=== PATIENT | female | born 1955 | race Hispanic/Latino ===

== ENCOUNTER 2016-11-21 04:48 | Emergency (ER) | payer SELFPAY ==
[2016-11-21 06:06] LABS: Hematocrit 34.8 % (30.3-42.9); Hemoglobin 11.5 gm/dl (10.1-14.3); Mean Corpuscular HGB Conc 33 % (30-34); Mean Corpuscular Hemoglobin 31 pg (28-32); Mean Corpuscular Volume 92 fl (79-97); Platelet Count 328 K/mm3 (140-440); Red Blood Count 3.77 M/mm3 (3.65-5.03); Red Cell Distribution Width 16.4 % (13.2-15.2)
--- NOTE | 2016-11-21 06:18 | Emergency Department Report ---
ED Chest Pain HPI - General Chief Complaint: Chest Pain Stated Complaint: CHEST PAIN Time Seen by Provider: 11/21/16 06:14 Source: patient, EMS Mode of arrival: Stretcher Limitations: No Limitations - History of Present Illness Initial Comments: The patient states that she's been having right-sided chest pain for months. She states that she was told not to replace her fentanyl patch on until today. 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 His state she presented to the emergency department had for about 5 AM with substantial pain. She has a history of lung cancer and is status post radiation therapy. She's had a port placed for future chemotherapy. She states that she was admitted to another facility for evaluation of her chest pain recently. She was told that she had an abnormal EKG and states that she had many tests done but not a heart catheterization. She was not diagnosed with a cardiac problem. Her right-sided chest pain is unchanged for several months. MD Complaint: chest pain -: month(s) Onset: during rest, awoke with symptoms Pain Location: right chest Pain Radiation: none Severity scale (0 -10): 10 Quality: aching Consistency: constant Improves With: nothing Worsens With: nothing re: denies: nausea, vomting, diaphoresis, dyspnea, sense of impending doom Other Symptoms: denies: cough, fever, syncope, rash, acid taste in mouth, leg swelling, palpitations, burping Aspirin use within the Past 7 Days: (1) Yes - Related Data On Oral Contraceptives: No Previous Rx's Medication Instructions Recorded Last Taken Type HYDROcodone/APAP 7.5-325 [[place] 1 each PO Q6HR PRN #14 tablet 11/21/16 Unknown Rx 7.5/325] Allergies Allergy/AdvReac Type Severity Reaction Status Date / Time No Known Allergies Allergy Unverified 11/21/16 05:04 Heart Score - HEART Score History: Slightly suspicious EKG: Significant ST-depression Age: 45-65 Risk factors: 1-2 risk factors Troponin: < normal limit HEART Score: 4 - Critical Actions Critical Actions: 0-3 pts:0.9-1.7%risk of adverse cardiac event.Candidate for discharge (chronic chest pain not consistent with ACS) ED Review of Systems ROS: Stated complaint: CHEST PAIN Other details as noted in HPI Constitutional: denies: chills, fever Eyes: denies: eye pain, eye discharge, vision change ENT: denies: ear pain, throat pain Respiratory: denies: cough, shortness of breath, wheezing Cardiovascular: chest pain. denies: palpitations Endocrine: no symptoms reported Gastrointestinal: denies: abdominal pain, nausea, diarrhea Genitourinary: denies: urgency, dysuria, discharge Musculoskeletal: denies: back pain, joint swelling, arthralgia Skin: denies: rash, lesions Neurological: denies: headache, weakness, paresthesias Psychiatric: denies: anxiety, depression Hematological/Lymphatic: denies: easy bleeding, easy bruising ED Past Medical Hx - Past Medical History Previous Medical History?: Yes Additional medical history: lung and spine cancer - Surgical History Past Surgical History?: Yes Additional Surgical History: total hysterectomy tonsils left leg surgery - Social History Smoking Status: Current Every Day Smoker Substance Use Type: Prescribed - Medications Home Medications: Home Medications Medication Instructions Recorded Confirmed Last Taken Type HYDROcodone/APAP 7.5-325 [[place] 1 each PO Q6HR PRN #14 tablet 11/21/16 Unknown Rx 7.5/325] ED Physical Exam - General Limitations: No Limitations General appearance: alert, in no apparent distress - Head Head exam: Present: atraumatic, normocephalic - Eye Eye exam: Present: normal appearance. Absent: scleral icterus - ENT ENT exam: Present: normal exam, mucous membranes moist - Neck Neck exam: Present: normal inspection - Respiratory Respiratory exam: Present: normal lung sounds bilaterally. Absent: respiratory distress - Cardiovascular Cardiovascular Exam: Present: regular rate, normal rhythm. Absent: systolic murmur, diastolic murmur, rubs, gallop - GI/Abdominal GI/Abdominal exam: Present: soft, normal bowel sounds. Absent: distended, tenderness, guarding, rebound, rigid - Extremities Exam Extremities exam: Present: normal inspection, normal capillary refill. Absent: tenderness, pedal edema, joint swelling, calf tenderness - Back Exam Back exam: Present: normal inspection - Neurological Exam Neurological exam: Present: alert, oriented X3, CN II-XII intact. Absent: motor sensory deficit - Psychiatric Psychiatric exam: Present: normal affect, normal mood - Skin Skin exam: Present: warm, dry, intact, normal color. Absent: rash ED Course Vital Signs 11/21/16 11/21/16 11/21/16 04:48 04:50 05:00 Temperature Pulse Rate 102 H 93 H 92 H Respiratory 26 H 26 H 23 Rate Blood Pressure 151/75 150/82 Blood Pressure [Left] O2 Sat by Pulse 100 100 100 Oximetry 11/21/16 11/21/16 11/21/16 05:05 05:25 05:26 Temperature 97.7 F Pulse Rate 89 89 Respiratory 20 20 Rate Blood Pressure 151/75 Blood Pressure 151/75 [Left] O2 Sat by Pulse 100 100 Oximetry 11/21/16 11/21/16 11/21/16 06:26 06:36 07:00 Temperature Pulse Rate 89 92 H Respiratory 19 Rate Blood Pressure 151/75 115/61 Blood Pressure [Left] O2 Sat by Pulse 100 Oximetry 11/21/16 11/21/16 08:00 08:06 Temperature Pulse Rate 87 Respiratory 16 16 Rate Blood Pressure 116/74 Blood Pressure [Left] O2 Sat by Pulse 97 Oximetry - Reevaluation(s) Reevaluation #1: Patient is a bit more cooperative with history after pain management. She did not admit that she actually was at [facility] on November 05. She did have some paperwork with her which reveals a recent diagnosis of pulmonary embolism. The patient states that she has been compliant with her Lovenox twice a day and does bring Lovenox with her. I will attempt to obtain her discharge summary and previous EKG from [facility]. She states she thinks her oncologist's name is Keith but doesn't know their first name but does have an appointment coming up. 11/21/16 07:29 Reevaluation #2: The patient's chronic right-sided chest pain has resolved. Her pulse oximetry is 99%. 2 troponins are negative. He states he's had a cardiac workup and previously abnormal EKG. I cannot obtain records from [facility]. However, at this time I do not think the patient has criteria for acute hospitalization. She is to continue her Lovenox and see her oncologist as planned. Additionally I looked at the area of her fentanyl patch. There is no evidence of allergic reaction. I instructed the patient to utilize her fentanyl for chronic pain management. 11/21/16 09:59 11/21/16 10:00 NAZARIO score - Nazario Score Age > 65: (0) No Aspirin use within the Past 7 Days: (0) No 3 or more CAD Risk Factors: (1) Yes 2 or more Angina events in past 24 hrs: (0) No Known CAD with more than 50% Stenosis: (0) No Elevated Cardiac Markers: (0) No ST Deviation Greater than 0.5mm: (0) No NAZARIO Score: 1 ED Medical Decision Making - Lab Data Result diagrams: 11/21/16 05:32 11/21/16 05:32 Laboratory Results - last 24 hr 11/21/16 05:32 WBC 4.0 L RBC 3.77 Hgb 11.5 Hct 34.8 MCV 92 MCH 31 MCHC 33 RDW 16.4 H Plt Count 328 Laboratory Results - last 24 hr 11/21/16 11/21/16 11/21/16 05:32 05:32 05:32 WBC 4.0 L RBC 3.77 Hgb 11.5 Hct 34.8 MCV 92 MCH 31 MCHC 33 RDW 16.4 H Plt Count 328 Add Manual Diff Complete Total Counted 100 Seg Neuts % (Manual) 77.0 H Band Neutrophils % 4.0 Lymphocytes % (Manual) 13.0 L Reactive Lymphs % (Man) 0 Monocytes % (Manual) 6.0 Eosinophils % (Manual) 0 Basophils % (Manual) 0 Metamyelocytes % 0 Myelocytes % 0 Promyelocytes % 0 Blast Cells % 0 Nucleated RBC % Not Reportable Seg Neutrophils # Man 3.1 Band Neutrophils # 0.2 Lymphocytes # (Manual) 0.5 L Abs React Lymphs (Man) 0.0 Monocytes # (Manual) 0.2 Eosinophils # (Manual) 0.0 Basophils # (Manual) 0.0 Metamyelocytes # 0.0 Myelocytes # 0.0 Promyelocytes # 0.0 Blast Cells # 0.0 WBC Morphology Not Reportable Hypersegmented Neuts Not Reportable Hyposegmented Neuts Not Reportable Hypogranular Neuts Not Reportable Smudge Cells Not Reportable Toxic Granulation Not Reportable Toxic Vacuolation Not Reportable Dohle Bodies Not Reportable Pelger-Huet Anomaly Not Reportable Onofre Rods Not Reportable Platelet Estimate Appears normal Clumped Platelets Not Reportable Plt Clumps, EDTA Not Reportable Large Platelets Not Reportable Giant Platelets Not Reportable Platelet Satelliting Not Reportable Plt Morphology Comment Not Reportable RBC Morphology Not Reportable Dimorphic RBCs Not Reportable Polychromasia Not Reportable Hypochromasia Not Reportable Poikilocytosis Not Reportable Anisocytosis 1+ Microcytosis Not Reportable Macrocytosis Not Reportable Spherocytes Not Reportable Pappenheimer Bodies Not Reportable Sickle Cells Not Reportable Target Cells Not Reportable Tear Drop Cells Not Reportable Ovalocytes Not Reportable Helmet Cells Not Reportable De La Garza[place] Bodies Not Reportable Metter Rings Not Reportable [place] Cells Not Reportable Bite Cells Not Reportable Crenated Cell Not Reportable Elliptocytes Not Reportable Acanthocytes (Spur) Not Reportable Rouleaux Not Reportable Hemoglobin C Crystals Not Reportable Schistocytes Not Reportable Malaria parasites Not Reportable Silverio Bodies Not Reportable Hem Pathologist Commnt No PT INR APTT Sodium 146 H Potassium 3.5 L Chloride 104.5 Carbon Dioxide 24 Anion Gap 21 BUN 5 L Creatinine 0.6 L Estimated GFR > 60 BUN/Creatinine Ratio 8.33 Glucose 99 Calcium 9.3 Magnesium 1.80 Total Bilirubin 0.40 Direct Bilirubin < 0.2 Indirect Bilirubin 0.2 AST 12 ALT 10 Alkaline Phosphatase 98 Troponin T < 0.010 Total Protein 6.5 Albumin 3.3 L Albumin/Globulin Ratio 1.0 11/21/16 11/21/16 06:00 06:00 WBC RBC Hgb Hct MCV MCH MCHC RDW Plt Count Add Manual Diff Total Counted Seg Neuts % (Manual) Band Neutrophils % Lymphocytes % (Manual) Reactive Lymphs % (Man) Monocytes % (Manual) Eosinophils % (Manual) Basophils % (Manual) Metamyelocytes % Myelocytes % Promyelocytes % Blast Cells % Nucleated RBC % Seg Neutrophils # Man Band Neutrophils # Lymphocytes # (Manual) Abs React Lymphs (Man) Monocytes # (Manual) Eosinophils # (Manual) Basophils # (Manual) Metamyelocytes # Myelocytes # Promyelocytes # Blast Cells # WBC Morphology Hypersegmented Neuts Hyposegmented Neuts Hypogranular Neuts Smudge Cells Toxic Granulation Toxic Vacuolation Dohle Bodies Pelger-Huet Anomaly Onofre Rods Platelet Estimate Clumped Platelets Plt Clumps, EDTA Large Platelets Giant Platelets Platelet Satelliting Plt Morphology Comment RBC Morphology Dimorphic RBCs Polychromasia Hypochromasia Poikilocytosis Anisocytosis Microcytosis Macrocytosis Spherocytes Pappenheimer Bodies Sickle Cells Target Cells Tear Drop Cells Ovalocytes Helmet Cells [place] Garza[place] Bodies Metter Rings Yanci Cells Bite Cells Crenated Cell Elliptocytes Acanthocytes (Spur) Rouleaux Hemoglobin C Crystals Schistocytes Malaria parasites Silverio Bodies Hem Pathologist Commnt PT 13.2 INR 1.01 APTT 29.8 Sodium Potassium Chloride Carbon Dioxide Anion Gap BUN Creatinine Estimated GFR BUN/Creatinine Ratio Glucose Calcium Magnesium Total Bilirubin Direct Bilirubin Indirect Bilirubin AST ALT Alkaline Phosphatase Troponin T Total Protein Albumin Albumin/Globulin Ratio Laboratory Results - last 24 hr 11/21/16 11/21/16 11/21/16 05:32 05:32 05:32 WBC 4.0 L RBC 3.77 Hgb 11.5 Hct 34.8 MCV 92 MCH 31 MCHC 33 RDW 16.4 H Plt Count 328 Add Manual Diff Complete Total Counted 100 Seg Neuts % (Manual) 77.0 H Band Neutrophils % 4.0 Lymphocytes % (Manual) 13.0 L Reactive Lymphs % (Man) 0 Monocytes % (Manual) 6.0 Eosinophils % (Manual) 0 Basophils % (Manual) 0 Metamyelocytes % 0 Myelocytes % 0 Promyelocytes % 0 Blast Cells % 0 Nucleated RBC % Not Reportable Seg Neutrophils # Man 3.1 Band Neutrophils # 0.2 Lymphocytes # (Manual) 0.5 L Abs React Lymphs (Man) 0.0 Monocytes # (Manual) 0.2 Eosinophils # (Manual) 0.0 Basophils # (Manual) 0.0 Metamyelocytes # 0.0 Myelocytes # 0.0 Promyelocytes # 0.0 Blast Cells # 0.0 WBC Morphology Not Reportable Hypersegmented Neuts Not Reportable Hyposegmented Neuts Not Reportable Hypogranular Neuts Not Reportable Smudge Cells Not Reportable Toxic Granulation Not Reportable Toxic Vacuolation Not Reportable Dohle Bodies Not Reportable Pelger-Huet Anomaly Not Reportable Onofre Rods Not Reportable Platelet Estimate Appears normal Clumped Platelets Not Reportable Plt Clumps, EDTA Not Reportable Large Platelets Not Reportable Giant Platelets Not Reportable Platelet Satelliting Not Reportable Plt Morphology Comment Not Reportable RBC Morphology Not Reportable Dimorphic RBCs Not Reportable Polychromasia Not Reportable Hypochromasia Not Reportable Poikilocytosis Not Reportable Anisocytosis 1+ Microcytosis Not Reportable Macrocytosis Not Reportable Spherocytes Not Reportable Pappenheimer Bodies Not Reportable Sickle Cells Not Reportable Target Cells Not Reportable Tear Drop Cells Not Reportable Ovalocytes Not Reportable Helmet Cells Not Reportable De La Garza[place] Bodies Not Reportable Metter Rings Not Reportable [place] Cells Not Reportable Bite Cells Not Reportable Crenated Cell Not Reportable Elliptocytes Not Reportable Acanthocytes (Spur) Not Reportable Rouleaux Not Reportable Hemoglobin C Crystals Not Reportable Schistocytes Not Reportable Malaria parasites Not Reportable Silverio Bodies Not Reportable Hem Pathologist Commnt No PT INR APTT Sodium 146 H Potassium 3.5 L Chloride 104.5 Carbon Dioxide 24 Anion Gap 21 BUN 5 L Creatinine 0.6 L Estimated GFR > 60 BUN/Creatinine Ratio 8.33 Glucose 99 Calcium 9.3 Magnesium 1.80 Total Bilirubin 0.40 Direct Bilirubin < 0.2 Indirect Bilirubin 0.2 AST 12 ALT 10 Alkaline Phosphatase 98 Troponin T < 0.010 Total Protein 6.5 Albumin 3.3 L Albumin/Globulin Ratio 1.0 11/21/16 11/21/16 11/21/16 06:00 06:00 07:59 WBC RBC Hgb Hct MCV MCH MCHC RDW Plt Count Add Manual Diff Total Counted Seg Neuts % (Manual) Band Neutrophils % Lymphocytes % (Manual) Reactive Lymphs % (Man) Monocytes % (Manual) Eosinophils % (Manual) Basophils % (Manual) Metamyelocytes % Myelocytes % Promyelocytes % Blast Cells % Nucleated RBC % Seg Neutrophils # Man Band Neutrophils # Lymphocytes # (Manual) Abs React Lymphs (Man) Monocytes # (Manual) Eosinophils # (Manual) Basophils # (Manual) Metamyelocytes # Myelocytes # Promyelocytes # Blast Cells # WBC Morphology Hypersegmented Neuts Hyposegmented Neuts Hypogranular Neuts Smudge Cells Toxic Granulation Toxic Vacuolation Dohle Bodies Pelger-Huet Anomaly Onofre Rods Platelet Estimate Clumped Platelets Plt Clumps, EDTA Large Platelets Giant Platelets Platelet Satelliting Plt Morphology Comment RBC Morphology Dimorphic RBCs Polychromasia Hypochromasia Poikilocytosis Anisocytosis Microcytosis Macrocytosis Spherocytes Pappenheimer Bodies Sickle Cells Target Cells Tear Drop Cells Ovalocytes Helmet Cells De La Garza[place] Bodies Metter Rings [place] Cells Bite Cells Crenated Cell Elliptocytes Acanthocytes (Spur) Rouleaux Hemoglobin C Crystals Schistocytes Malaria parasites Silverio Bodies Hem Pathologist Commnt PT 13.2 INR 1.01 APTT 29.8 Sodium Potassium Chloride Carbon Dioxide Anion Gap BUN Creatinine Estimated GFR BUN/Creatinine Ratio Glucose Calcium Magnesium Total Bilirubin Direct Bilirubin Indirect Bilirubin AST ALT Alkaline Phosphatase Troponin T < 0.010 Total Protein Albumin Albumin/Globulin Ratio - EKG Data -: EKG Interpreted by Me EKG shows normal: sinus rhythm Rate: normal - EKG Data When compared to previous EKG there are: previous EKG unavailable Interpretation: other (the patient does have diffuse T-wave inversions inferolateral. There is no evidence of STEMI.) - Radiology Data interpreted by me: X-ray shows a port, no jugular density in the right mid field. Some hazy interstitial increase. Normal cardiac silhouette. No consolidating pneumonia or other acute findings is grossly present Critical care attestation.: If time is entered above; I have spent that time in minutes in the direct care of this critically ill patient, excluding procedure time. ED Disposition Clinical Impression: Right-sided chest pain, History of pulmonary embolism Lung cancer Qualifiers: Laterality: right Lung location: hilum of lung Qualified Code(s): C34.01 - Malignant neoplasm of right main bronchus Disposition: DC-01 TO HOME OR SELFCARE Is pt being admited?: No Does the pt Need Aspirin: No Condition: Stable Instructions: Chest Pain (ED) Additional Instructions: Continue your usually prescribed medications. Return to the emergency department any acute change or problem. See your oncologist as planned. Prescriptions: HYDROcodone/APAP 7.5-325 [[place] 7.5/325] 1 each PO Q6HR PRN #14 tablet PRN Reason: Pain Referrals: PRIMARY CARE, [Primary Care Provider] - 3-5 Days usual, oncologist [Other] - 3-5 Days Time of Disposition: 10:01
[2016-11-21 06:21] LABS: Anion Gap 21 mmol/L; BUN/Creatinine Ratio 8.33; Blood Urea Nitrogen 5 mg/dL (7-17); Calcium 9.3 mg/dL (8.4-10.2); Carbon Dioxide 24 mmol/L (22-30); Chloride 104.5 mmol/L (98-107); Glucose 99 mg/dL (65-100); Potassium 3.5 mmol/L (3.6-5.0); Sodium 146 mmol/L (137-145)
[2016-11-21] MEDS ORDERED: DILAUDID IV ONE ×2 (06:26→07:28)
[2016-11-21] MEDS ORDERED: ZOFRAN IV ONE (06:26)
[2016-11-21] MEDS ORDERED: ASPIRIN PO ONE (06:27)
[2016-11-21] MEDS ORDERED: BENADRYL IV ONE (06:27)
[2016-11-21] MEDS ORDERED: NITRO-BID 2% TP ONE (06:27)
[2016-11-21 06:45] LABS: Blastocytes % (Manual) 0 %
[2016-11-21 06:46] LABS: Anisocytosis 1+; Basophils % (Manual) 0 % (0.0-1.8); Diff Status Complete; Eosinophils % (Manual) 0 % (0.0-4.3)
[2016-11-21 06:48] LABS: INR 1.01 (0.87-1.13)
[2016-11-21 06:49] LABS: Alanine Aminotransferase 10 units/L (7-56); Albumin 3.3 g/dL (3.9-5); Alkaline Phosphatase 98 units/L (35-129); Total Protein 6.5 g/dL (6.3-8.2)
[2016-11-21 06:53] LABS: Bilirubin,Direct < 0.2 mg/dL (0-0.2); Bilirubin,Indirect 0.2 mg/dL
[2016-11-21] MEDS ORDERED: LOVENOX SUB-Q ONE (07:32)
--- NOTE | 2016-11-21 09:23 | XRay Report ---
AP CHEST : 11/21/16 04:48:00 CLINICAL: Chest pain. COMPARISON:None FINDINGS: Normal heart and pulmonary vessels.Right nipple shadow. The lungs are clear. No airspace disease or pleural effusion. A right [id number] tip is in the SVC. The bones and soft tissues are unremarkable. IMPRESSION: No acute cardiopulmonary process.
[2016-11-21 09:57] VITALS: BP 106/59
== END 2016-11-21 10:20 | disposition home or self-care (01) ==
LOC: ED 04:48
DX: R07.9 Chest pain, unspecified (principal); C34.01 Malignant neoplasm of right main bronchus; Z86.711 Personal history of pulmonary embolism; F17.200 Nicotine dependence, unspecified, uncomplicated
CPT/HCPCS: 36415; 71010; 80048; 80074; 83735; 84484; 85007; 85025; 85610; 85730; 93005; 93010; 96374; 96375; 96376; 99285; J1170; J1200; J2405